=== PATIENT | male | born 1995 ===

== ENCOUNTER 2020-06-15 19:39 | Emergency (ER) | payer SELFPAY ==
[2020-06-15 20:30] VITALS: BP 194/124
--- NOTE | 2020-06-15 20:32 | Emergency Department Report ---
ED General Adult HPI - General Chief complaint: Extremity Injury, Lower Stated complaint: FALL;FOOT PAIN Time Seen by Provider: 06/15/20 20:28 Source: patient Mode of arrival: Wheelchair Limitations: No Limitations - History of Present Illness Initial comments: 25-year-old male patient presents to the emergency department with complaints of traumatic left lower extremity pain status post fall. Patient states he fell approximately 6 steps off of a ladder an hour ago. No resulting head injury or loss of consciousness. Pain is primarily localized to the medial aspect of his left ankle, but states he is experiencing pain from his knee down. No history of prior left lower extremity injuries. Denies headache, neck pain, back pain, chest pain, hip pain, paresthesias, numbness. Denies other complaints at this time. - Related Data Allergies Allergy/AdvReac Type Severity Reaction Status Date / Time No Known Allergies Allergy Unverified 06/15/20 20:27 ED Review of Systems ROS: Stated complaint: FALL;FOOT PAIN Other details as noted in HPI Other: CARDIOVASCULAR: Negative for chest pain. PULMONARY: Negative for dyspnea. GASTROINTESTINAL: Negative for abdominal pain. MUSCULOSKELETAL: Positive for knee pain, lower leg pain, ankle pain, foot pain. NEUROLOGICAL: Negative for headache. INTEGUMENTARY: Negative for ecchymosis. ED Past Medical Hx - Past Medical History Previous Medical History?: No - Surgical History Past Surgical History?: No - Social History Smoking Status: Never Smoker ED Physical Exam - General Limitations: No Limitations - Other Other exam information: General: Awake, appropriately interactive, no acute distress. Neck: Supple. Full range of motion intact. Cardiovascular: Normal peripheral perfusion. Pulmonary: No respiratory distress. Patient is speaking normally without use of accessory muscles. Skin: No apparent rashes or lesions. Neurological: No facial asymmetry. Speech is clear. Follows commands. Patient is alert and oriented. Musculoskeletal: Tenderness to palpation throughout the left foot and ankle, most pronounced along the medial malleolus, without obvious deformity or dislocation. Tenderness to palpation throughout the left knee without obvious deformity or dislocation. No plantar ecchymosis. Distal neurovascular and motor/sensory function intact. Psych: Cooperative. Appropriate mood and affect. ED Course Vital Signs 06/15/20 20:29 Temperature 98.7 F Pulse Rate 90 Respiratory 19 Rate Blood Pressure 194/124 O2 Sat by Pulse 97 Oximetry ED Medical Decision Making - Medical Decision Making Differential diagnosis including but not limited to: sprain, strain, fracture, contusion, dislocation, collateral ligament injury, meniscal injury, tendon rupture On evaluation, patient remains stable. Repeat neurovascular exam remains intact. X-rays without acute process. History and exam findings consistent with left lower extremity contusion. Patient will be discharged home with Marco wrap and instructed to follow-up with primary care provider within the week. Patient expressed understanding and is agreeable to plan of care. RICE precautions discussed. Strict return precautions provided. History, exam, diagnostic testing, and current condition do not suggest worrisome pathology to warrant further testing, continued ED treatment, admission, or surgical evaluation at this point. Given the low probability of a significant medical illness, it would be more likely to result in harm than benefit to perform further testing at this stage. Discussed findings, presumptive diagnosis, need for follow-up and specific signs/symptoms that should prompt immediate return to the emergency department. Instructions were explained in detail to the patient in addition to giving written discharge information. Patient expressed understanding and was given the opportunity to ask questions, all of which were satisfactorily answered prior to discharge home. Critical care attestation.: If time is entered above; I have spent that time in minutes in the direct care of this critically ill patient, excluding procedure time. ED Disposition Clinical Impression: Contusion of left lower extremity Qualifiers: Encounter type: initial encounter Qualified Code(s): S80.12XA - Contusion of left lower leg, initial encounter Disposition: TO HOME OR SELFCARE Is pt being admited?: No Does the pt Need Aspirin: No Condition: Stable Instructions: Contusion, [id number] Additional Instructions: Take Tylenol every 4 hours and Motrin every 8 hours as needed for pain. Apply ice to affected areas as needed to reduce swelling. Keep right foot/right ankle/right knee elevated as often as possible to reduce swelling. Wear Marco wrap as directed. Follow-up with primary care provider within 1 week. Call Thursday to schedule an appointment. See referral information below. Return to the emergency department immediately for new or worsening symptoms. Referrals: JANIE JIMENEZ MD [Staff Physician] - 3-5 Days Time of Disposition: 21:25
--- NOTE | 2020-06-15 21:01 | XRay Report ---
LEFT FOOT 3 VIEWS INDICATION / CLINICAL INFORMATION: fall from ladder. COMPARISON: None available. FINDINGS: No significant skeletal abnormality Signer Name: Jignesh Nicholson MD FACR Signed: 06/15/2020 8:57 PM Workstation Name: [id number]
--- NOTE | 2020-06-15 21:02 | XRay Report ---
LEFT KNEE 3 VIEWS INDICATION / CLINICAL INFORMATION: fall from ladder. COMPARISON: None available. FINDINGS: No significant skeletal abnormality Signer Name: Jignesh Nicholson MD FACR Signed: 06/15/2020 8:57 PM Workstation Name: [id number]
--- NOTE | 2020-06-15 21:02 | XRay Report ---
LEFT ANKLE 3 VIEWS INDICATION / CLINICAL INFORMATION: fall from ladder. COMPARISON: None available. FINDINGS: No significant skeletal abnormality Signer Name: Jignesh Nicholson MD FACR Signed: 06/15/2020 8:58 PM Workstation Name: [id number]
== END 2020-06-15 22:16 | disposition home or self-care (01) ==
LOC: ED 19:39
DX: S80.12XA Contusion of left lower leg, initial encounter (principal); W10.9XXA Fall (on) (from) unspecified stairs and steps, initial encounter; Y93.89 Activity, other specified; Y92.89 Other specified places as the place of occurrence of the external cause; Y99.8 Other external cause status
CPT/HCPCS: 99283